=== PATIENT | female | born 1975 | race Caucasian/White ===

== ENCOUNTER 2017-10-30 11:37 | Emergency (ER) | payer BC ==
[2017-10-30 12:24] VITALS: BP 141/91
--- NOTE | 2017-10-30 12:38 | UC ---
Knee Pain HPI - HPI Summary HPI Summary: right knee pain x3 days no known injury pain is sever , difficulty waling, + swelling and redness hx of right knee pain , had MRI done years ago , - History of Current Complaint Chief Complaint: UCLowerExtremity Stated Complaint: RIGHT KNEE COMPLAINT Time Seen by Provider: 10/30/17 12:28 Hx Obtained From: Patient Hx Last Menstrual Period: 08/14/14 Onset/Duration: Gradual Onset, Lasting Days - 3, Still Present Severity Initially: Severe Severity Currently: Severe Character: Sharp Aggravating Factor(s): Movement, Weight Bearing, Prolonged Standing Alleviating Factor(s): Nothing Associated Signs And Symptoms: Positive: Swelling, Redness. Negative: Bruising , Fever, Weakness, Numbness, Tingling Able to Bear Weight: Yes - Allergies/Home Medications Allergies/Adverse Reactions: Allergies Allergy/AdvReac Type Severity Reaction Status Date / Time Cefaclor [From Ceclor] Allergy Severe RASH , SOB Verified 10/30/17 12:24 Penicillins Allergy Severe RASH, SOB Verified 10/30/17 12:24 Guaifenesin [From Entex ER] Allergy Unknown Unknown Verified 10/30/17 12:24 Reaction Details Methylparaben [From Entex ER] Allergy Unknown Unknown Verified 10/30/17 12:24 Reaction Details Phenylephrine [From Entex [facility]] Allergy Unknown Unknown Verified 10/30/17 12:24 Reaction Details Propylparaben [From Entex [facility]] Allergy Unknown Unknown Verified 10/30/17 12:24 Reaction Details Azithromycin [From Z-Alejandro] AdvReac Diarrhea Verified 10/30/17 12:24 Home Medications: Home Medications Naproxen [Naproxen 500 mg] 500 10/30/17 [History] PMH/Surg Hx/FS Hx/Imm Hx - Additional Past Medical History Additional PMH: AORTIC BYCUSPID VALVE DISORDER - Surgical History Surgical History: Yes Surgery Procedure, Year, and Place: POLOPS REMOVED FROM UTERUS, HYSTERECTOMY - Family History Known Family History: Negative: Diabetes - Social History Alcohol Use: Rare Substance Use Type: None Smoking Status (MU): Light Every Day Tobacco Smoker Type: Cigarettes Amount Used/How Often: 1/2 PPD Have You Smoked in the Last Year: Yes Household Exposure Type: Cigarettes - Immunization History Most Recent Influenza Vaccination: NOT CURRENT Review of Systems Constitutional: Negative Skin: Negative Eyes: Negative ENT: Negative Respiratory: Negative Musculoskeletal: Arthralgia - right knee pain Is Patient Immunocompromised?: No All Other Systems Reviewed And Are Negative: Yes Physical Exam Triage Information Reviewed: Yes Appearance: Well-Appearing, Pain Distress, Obese Vital Signs: Initial Vital Signs Temp 98.3 F 10/30/17 12:18 Pulse 90 10/30/17 12:18 Resp 18 10/30/17 12:18 BP 141/91 10/30/17 12:18 Pulse Ox 100 10/30/17 12:18 Vital Signs Reviewed: Yes Eyes: Positive: Conjunctiva Clear ENT: Positive: Normal ENT inspection, Hearing grossly normal, Pharynx normal Neck: Positive: Supple, Nontender, No Lymphadenopathy Respiratory: Positive: Chest non-tender, Lungs clear, Normal breath sounds Cardiovascular: Positive: RRR, No Murmur, Pulses Normal Musculoskeletal: Positive: Other: - right knee: no swelling, no erythema, no effusion , + diffuse tenderness, pain with flexion and extension Knee Pain Course/Dx - Differential Dx/Diagnosis Provider Diagnoses: right knee pain. tendonitis right knee Discharge - Discharge Plan Condition: Stable Disposition: HOME Prescriptions: Naproxen [Naproxen 500 mg] 500 mg PO BID #20 tab Patient Education Materials: Patellar Tendinitis (ED) Referrals: Mimi Esparza PA [Primary Care Provider] - 7 Days
--- NOTE | 2017-10-30 13:01 | RAD ---
HISTORY: Right knee pain, no known injury COMPARISONS: None VIEWS: 4, Frontal, lateral, axial, and oblique views of the right knee FINDINGS: BONE DENSITY: Normal. BONES: There is no displaced fracture. JOINTS: There is no arthropathy. There is no suprapatellar joint effusion or lipohemarthrosis. ALIGNMENT: There is no dislocation. SOFT TISSUES: Unremarkable. OTHER FINDINGS: None. IMPRESSION: NO ACUTE OSSEOUS INJURY. IF SYMPTOMS PERSIST, RECOMMEND REPEAT IMAGING.
== END 2017-10-30 13:21 | disposition home or self-care (01) ==
LOC: UCCORT 11:37
DX: M76.9 Unspecified enthesopathy, lower limb, excluding foot (principal); M25.561 Pain in right knee; Z72.0 Tobacco use; Z77.22 Contact with and (suspected) exposure to environmental tobacco smoke (acute) (chronic)
CPT/HCPCS: 99202; G0463

== ENCOUNTER 2018-07-01 09:23 | Emergency (ER) | payer BC ==
[2018-07-01 10:00] VITALS: BP 155/84
--- NOTE | 2018-07-01 10:19 | UC ---
Skin Complaint HPI - HPI Summary HPI Summary: 42-year-old female with history of bicuspid aortic, hysterectomy in the past, presents with 2 days of skin rash for discrete round locations located on the left upper thigh, right buttock, right leg, and anterior abdomen. Largest of which is round and approximately 3 cm in diameter, - History of Current Complaint Chief Complaint: UCSkin Stated Complaint: SKIN COMPLAINT Hx Last Menstrual Period: 08/14/14 Pain Intensity: 5 - Allergy/Home Medications Allergies/Adverse Reactions: Allergies Allergy/AdvReac Type Severity Reaction Status Date / Time Penicillins Allergy Severe Rash, SOB Verified 07/01/18 10:06 azithromycin Allergy Intermediate Diarrhea Verified 07/01/18 10:06 [From Zithromax Z-Alejandro] MS Guaifenesin Allergy Unknown Unknown Verified 10/30/17 12:24 [From Entex ER] Reaction Details MS Methylparaben Allergy Unknown Unknown Verified 10/30/17 12:24 [From Entex ER] Reaction Details MS Phenylephrine Allergy Unknown Unknown Verified 10/30/17 12:24 [From Entex ER] Reaction Details MS Propylparaben Allergy Unknown Unknown Verified 10/30/17 12:24 [From Entex ER] Reaction Details Review of Systems Constitutional: Negative Skin: Rash Eyes: Negative ENT: Negative Respiratory: Negative Cardiovascular: Negative Gastrointestinal: Negative Motor: Negative Neurovascular: Negative All Other Systems Reviewed And Are Negative: Yes PMH/Surg Hx/FS Hx/Imm Hx - Additional Past Medical History Additional PMH: Bicuspid aorta Previously Healthy: Yes - Surgical History Surgical History: Yes Surgery Procedure, Year, and Place: POLOPS REMOVED FROM UTERUS, HYSTERECTOMY - Family History Known Family History: Negative: Diabetes - Social History Alcohol Use: Rare Substance Use Type: None Smoking Status (MU): Light Every Day Tobacco Smoker Type: Cigarettes Amount Used/How Often: 1/2 PPD Have You Smoked in the Last Year: Yes Household Exposure Type: Cigarettes - Immunization History Most Recent Influenza Vaccination: NOT CURRENT Physical Exam - Summary Physical Exam Summary: Gen: alert, in no acute distress HEENT: EOMI, normocephalic, atruamatic Neck: supple, no masses CV: Normal s1 s2, no murmurs Resp: normal breath sounds b/l GI: no tenderness, no masses Musculoskeletal: normal ROM all 4 extremities Skin: 4 areas of red round rash with central induration and underlying erythema consistent with cellulitis, located on R inner thigh and left anterior abdomen and R buttock. No fluctuance. No pus drainage. Lymph: no lymphadenopathy Psych: appropriate affect, oriented Triage Information Reviewed: Yes Vital Signs: Initial Vital Signs Temp 36.5 C 07/01/18 09:54 Pulse 89 07/01/18 09:54 Resp 18 07/01/18 09:54 BP 155/84 07/01/18 09:54 Pulse Ox 100 07/01/18 09:54 Course/Dx - Course Course Of Treatment: Rash consistent with MRSA cellulitis, patient prescribed antibiotics and Hibiclens wash, instructed to follow up with primary care physician. Agrees to and understands discharge instructions. - Diagnoses Provider Diagnoses: Cellulitis Discharge - Sign-Out/Discharge Documenting (check all that apply): Patient Departure All imaging exams completed and their final reports reviewed: No Studies - Discharge Plan Condition: Stable Disposition: HOME Prescriptions: Chlorhexidine Gluconate [Hibiclens] 236 ml TP DAILY 7 Days #1 liquid DOXYcycline CAP(*) [DOXYcycline 100MG CAP(*)] 100 mg PO BID #28 cap Patient Education Materials: Cellulitis (DC) Referrals: Mimi Esparza PA [Primary Care Provider] - Additional Instructions: PLEASE FINISH FULL COURSE OF ANTIBIOTIC PLEASE MAKE AN APPOINTMENT TO BE SEEN BY A PRIMARY CARE DOCTOR WITHIN PLEASE REPORT TO THE ER FOR ANY WORSENING OR CONCERNING SYMPTOMS - Billing Disposition and Condition Condition: STABLE Disposition: Home
== END 2018-07-01 10:27 | disposition home or self-care (01) ==
LOC: UCCORT 09:23
DX: L03.116 Cellulitis of left lower limb (principal); L03.317 Cellulitis of buttock; L03.119 Cellulitis of unspecified part of limb; L03.311 Cellulitis of abdominal wall; Z88.0 Allergy status to penicillin; Z88.1 Allergy status to other antibiotic agents; Z88.8 Allergy status to other drugs, medicaments and biological substances; F17.210 Nicotine dependence, cigarettes, uncomplicated
CPT/HCPCS: 99212; G0463